=== PATIENT | female | born 2000 | race Hispanic/Latino ===

== ENCOUNTER 2022-07-25 04:08 | Emergency (ER) | payer OTHER ==
[2022-07-25] MEDS ORDERED: Dexamethasone 10 MG/ML VIAL ONE (04:28)
== END 2022-07-25 05:00 | disposition home or self-care (01) ==
LOC: CSHERS 04:08
DX: J02.9 Acute pharyngitis, unspecified (principal)
CPT/HCPCS: 87081; 87430; 99283; J1100